=== PATIENT | female | born 1950 | race Caucasian/White ===

== ENCOUNTER 2017-04-30 11:09 | Emergency (ER) | payer OTHER, MEDICARE ==
[~2017-04-30] VITALS: Ht 182.9 cm; Wt 110.5 kg
[~2017-04-30 11:09] MED LIST: ASPIRIN 32325 MG/TAB PO; BACTRIM DS 8001 TAB PO; CALCIUM 600 + V1 TA1 PO; CALCIUM600 MG PO; CEPHALEXIN500 M1 PO; CLARITIN 1010 MG/TAB PO; MULTIPLE VITAMI1 TAB PO; NO HOME MEDICATIONS; NORCO 325 MG-51 TAB PO; PATADAY 2.5 ML2.5 ML OP; PREVACID 30MG30 M1 PO; PROAIR HFA0.09 MG/AC IH; VITAMIN D32000 IU PO; VITAMIN D50000 IU PO; ZANTAC 150MG T150 MG PO; ZITHROMAX 250M250 MG PO
[2017-04-30 11:11] VITALS: TEMP 98.5
[2017-04-30 12:13] LABS: INFLUENZA A NEGATIVE; INFLUENZA B NEGATIVE
[2017-04-30] MEDS ORDERED: DOXYCYCLINE 10100 MG PO (14:13)
[2017-04-30] MEDS ORDERED: PREDNISONE20 MG PO (14:13)
[2017-04-30 14:23] VITALS: BP 112/51; PULSE 78
== END 2017-04-30 14:23 | disposition home or self-care (01) ==
LOC: COL.ER 11:09
PROVIDERS: Nurse Practitioner
DX: J20.9 Acute bronchitis, unspecified (principal); I10 Essential (primary) hypertension; Z95.0 Presence of cardiac pacemaker; Z79.82 Long term (current) use of aspirin

== ENCOUNTER 2017-06-18 14:16 | Emergency (ER) | payer OTHER, MEDICARE ==
[~2017-06-18] VITALS: Ht 182.9 cm; Wt 109.1 kg
[~2017-06-18 14:16] MED LIST changes: +DOXYCYCLINE 10100 MG PO; +PREDNISONE20 MG PO
[2017-06-18 14:23] VITALS: TEMP 97.4
[2017-06-18 14:47] LABS: BASO % 0.4 % (0.0-2.0); EOS # 0.1 (0.0-0.7); EOS % 2.6 % (0-4.0); GRAN # 3.2 (1.4-6.5); GRAN % 57.6 % (42.2-75.2); HEMATOCRIT 40.6 % (37.0-47.0); HEMOGLOBIN 13.2 g/dl (12.5-16.0); LYMPH # 1.8 (1.2-3.4); MEAN CELL VOLUME 90 fl (80.0-100.0); MEAN CORPUSCULAR HEMOGLOBIN 29 pg (27.0-31.0); MEAN CORPUSCULAR HGB CONC 33 g/dl (33.0-37.0); MEAN PLATELET VOLUME 10.3 fl (7.4-10.4); MONO # 0.3 (0.1-0.6); PLATELET COUNT 170 K/mm3 (130-400); RED BLOOD COUNT 4.51 M/mm3 (4.10-5.30); REDCELL DISTRIBUTION WIDTH-CV 14.5 % (11.5-14.5)
[2017-06-18 14:54] LABS: ALANINE AMINOTRANSFERASE 30 U/L (9-52); ALBUMIN 4.1 gm/dL (3.5-5.0); ALKALINE PHOSPHATASE 80 U/L (50-136); ANION GAP 12 mmol/L (7-16); AST,SGOT 23 U/L (15-37); BILIRUBIN,TOTAL 0.6 mg/dL (0.0-1.0); BLOOD UREA NITROGEN 20 mg/dL (7-17); CALCIUM 9.1 mg/dL (8.4-10.2); CARBON DIOXIDE 24 mmol/L (22-30); CHLORIDE 105 mmol/L (98-107); CREATININE, serum 1.02 mg/dL (0.52-1.25); GLUCOSE 92 mg/dL (74-106); POTASSIUM 3.6 mmol/L (3.4-5.0); SODIUM 141 mmol/L (137-145); TOTAL PROTEIN 7.2 gm/dL (6.4-8.2)
[2017-06-18 15:04] LABS: INR 1.1 (0.8-3.0)
[2017-06-18 15:07] LABS: TROPONIN-I < 0.012 ng/mL (0.000-0.034)
[2017-06-18 15:10] LABS: PROLACTIN 67.1 ng/mL (3.0-18.6)
[2017-06-18] MEDS ORDERED: AMOXICILLIN 8751 TAB PO (15:55)
[2017-06-18 17:41] VITALS: BP 132/66; PULSE 70
== END 2017-06-18 17:32 | disposition home or self-care (01) ==
LOC: COL.ER 14:16
PROVIDERS: Emergency Medicine
DX: G40.909 Epilepsy, unspecified, not intractable, without status epilepticus (principal); R55 Syncope and collapse; J32.9 Chronic sinusitis, unspecified; I10 Essential (primary) hypertension
CPT/HCPCS: J7030; Q9967

== ENCOUNTER → 2017-07-17 | Outpatient (CLI) | payer OTHER ==
[~2017-07-17] MED LIST changes: +AMOXICILLIN 8751 TAB PO
== END ==
LOC: COL.CARD 10:44
DX: G40.309 Generalized idiopathic epilepsy and epileptic syndromes, not intractable, without status epilepticus (principal)

== ENCOUNTER → 2017-09-02 | Outpatient (CLI) | payer BC | LOC: MC.RAD 14:34 | DX: Z12.31 Encounter for screening mammogram for malignant neoplasm of breast (principal) ==

== ENCOUNTER → 2021-02-22 | Outpatient (CLI) | payer OTHER | LOC: COL.RAD 13:46 | DX: M25.512 Pain in left shoulder (principal) | CPT/HCPCS: J3301; Q9967 ==